=== PATIENT | male | born 1975 | race African-American/Black ===

== ENCOUNTER 2023-02-13 16:29 | Emergency (ER) | payer MEDICARE, MEDICAID, SELFPAY ==
[2023-02-13 16:30] VITALS: BP 121/80; PULSE 79; RESP 18; TEMP 36.1; O2SAT 98; BMI 31.8
--- NOTE | 2023-02-13 16:46 | EDS_ITS ---
HPI <TIMOTHY Jolley - Last Filed: 02/13/23 18:54> History of Present Illness Chief Complaint: Laceration Narrative Narrative: Patient presenting today with a laceration to his left index finger that he got while using a table saw this afternoon. He reports that a piece of the wood kicked up and he got his finger caught in the saw. His tetanus is up-to-date. He denies any other injury, he is not on any blood thinners. PFSH <TIMOTHY Jolley - Last Filed: 02/13/23 18:54> PFSH Allergy/AdvReac Type Severity Reaction Status Date / Time Penicillins Allergy Other Verified 02/13/23 16:32 Quinolones Allergy Other Verified 02/13/23 16:32 ANTIBIOTICS Allergy NEEDS Uncoded 02/13/23 16:32 FOLLOW-UP Social History Smoking Status: Current every day smoker tobacco type: cigarettes ROS <TIMOTHY Jolley - Last Filed: 02/13/23 18:54> ROS ED Constitutional Constitutional ED: Denies chills or fever(s) Cardiovascular Cardiovascular: Denies chest pain Respiratory/Chest Respiratory/Chest: Denies cough or dyspnea Gastrointestinal Gastrointestinal: Denies abdominal pain, nausea or vomiting Musculoskeletal Musculoskeletal: Denies arthralgias or myalgias Integumentary Reports laceration Neurologic Neurologic: Denies paresthesias EXAM <TIMOTHY Jolley Last Filed: 02/13/23 18:54> Physical Exam Const Vital Signs: 02/13/23 16:30 Temperature 97 F L Temperature Source Temporal Pulse Rate 79 Respiratory Rate 18 Blood Pressure 121/80 H Blood Pressure Mean 93 Pulse Ox 98 Oxygen Delivery Method Room Air Positive well nourished, well developed and no apparent distress General Appearance ED: well developed HEENT Reports normocephalic and head/scalp atraumatic Mouth ED: Yes moist mucous membranes normal Eyes PERRL and EOMs intact bilaterally Neck full ROM and supple Chest Wall inspection of chest normal Resp normal respiratory effort and clear to auscultation bilaterally Cardio regular rate and regular rhythm GI soft to palpation, non-tender, non-distended and no masses Back/Spine normal ROM and normal to inspection Extremity full ROM Extremity Narrative: 3 cm skin flap laceration to the distal volar aspect of the L index finger. 0.5 cm linear laceration to the tip of the finger. Radial pulses 2+ bilaterally, good capillary refill, sensation intact. Intact flexion and extension of MCP, PIP, and DIP joints of that finger. Neuro oriented x3, CN's II-XII intact bilaterally, moves all extremities, no focal motor deficits and no sensory deficits noted Sensorium / Orientation: awake and alert Motor Exam: strength 5/5 throughout Psych mental status grossly normal and thought process normal Skin no rashes or lesions noted and no wounds <Dr. Azucena Duncan MD - Last Filed: 02/13/23 22:54> Physical Exam Const Vital Signs: 02/13/23 16:30 Temperature 97 F L Temperature Source Temporal Pulse Rate 79 Respiratory Rate 18 Blood Pressure 121/80 H Blood Pressure Mean 93 Pulse Ox 98 Oxygen Delivery Method Room Air PROC <TIMOTHY Jolley - Last Filed: 02/13/23 18:54> Procedures Lacerations laceration: Length: 1.38 in Depth: Sub Q Shape: Flap Prep: Chlorhexadine Laceration repair: Digital block, Foreign material removed, Irrigated, Lidocaine, Skin sutures and Wound explored Irrigated (ml): 50 Number of Sutures/[place]: 7 Suture Information: Ethilon and 5-0 MDM <TIMOTHY Jolley - Last Filed: 02/13/23 18:54> [facility] Narrative Medical decision making narrative: Patient presenting today with a laceration to the distal volar aspect of the left index finger. Small 0.5 cm laceration to the very tip of the finger. Tetanus is up-to-date. Neurovascularly intact. Flexor and extensor tendons intact. Finger was soaked in chlorhexidine and saline and then irrigated with saline. Digital block performed with lidocaine. 5 stitches were placed to tack down the skin flap and 2 sutures were placed to the laceration to the tip of the finger. Bacitracin ointment was applied and wound was bandaged. Patient has been educated on signs of infection to look out for. He is to have the stitches removed in 7 to 10 days and follow-up with his PCP. He will be discharged home in stable condition and is comfortable with plan. <Dr. Azucena Duncan MD - Last Filed: 02/13/23 22:54> [facility] Treatment and Re-Evaluation Narrative: Patient seen and evaluated with NATHANIEL. I personally interviewed and examined the patient. I was involved in all aspects of patient's orders, interpretation of results, and treatment. Patient presents with laceration to the distal aspect of the left index finger. He was using a saw when a piece of wood kicked up and caught him on the hand. Patient sitting upright in bed no acute distress. Left upper extremity examination reveals laceration to the distal aspect of the left index finger. Nail appears to be intact. He has good range of motion and cap refill distally. Good sensation. Wound is anesthetized and repaired with suture. Please see procedure note. Patient is to follow-up for suture removal and wound care instructions were discussed. Discharge Plan Triage Chief Complaint: Laceration ED Midlevel Provider: Mari Chang ED Provider: Azucena Duncna/Rx/DC Orders Clinical Impression: Laceration of finger Instructions: ED Laceration, Hand: All Closures Primary Care Provider: [facility] Referrals: [place] [Primary Care Provider] - Activity Restrictions/Additional Instructions: Have stitches removed in 7 to 10 days, keep an eye out for signs of infection and return if you notice any increased swelling, redness, purulent discharge, or fever. Keep area clean and covered with bacitracin ointment and bandage. Disposition Disposition: Home, Self Care Discharge Date/Time: 02/13/23 18:25
== END 2023-02-13 18:25 | disposition home or self-care (01) ==
PROVIDERS: Emergency Provider Emergency Medicine; Visit Provider Emergency Medicine
DX: S61.211A Laceration without foreign body of left index finger without damage to nail, initial encounter (principal); F17.210 Nicotine dependence, cigarettes, uncomplicated; W26.8XXA Contact with other sharp object(s), not elsewhere classified, initial encounter
CPT/HCPCS: 12001; 99282